=== PATIENT | female | born 1955 | race Hispanic/Latino ===

== ENCOUNTER 2018-12-13 16:19 | Emergency (ER) | payer OTHER ==
[~2018-12-13] VITALS: Ht 144.8 cm; Wt 67.6 kg
[2018-12-13] MEDS ORDERED: VENLAFAXINE HCL25 MG PO (17:09)
[2018-12-13] MEDS ORDERED: GABAPENTIN300 MG PO (17:09)
[2018-12-13] MEDS ORDERED: LANTUS100 UNITS/ SUB-Q (17:10)
[2018-12-13] MEDS ORDERED: PRAVASTATIN SOD20 MG PO (17:10)
[2018-12-13] MEDS ORDERED: HUMALOG100 UNITS/ IV (17:11)
[2018-12-13] MEDS ORDERED: NORCO 7.5-3251 EACH PO (17:11)
[2018-12-13] MEDS ORDERED: PRINIVIL5 MG PO (17:12)
[2018-12-13] MEDS ORDERED: ZOFRAN4 MG PO (19:54)
== END 2018-12-13 20:22 | disposition home or self-care (01) ==
LOC: ED 16:19
DX: E11.65 Type 2 diabetes mellitus with hyperglycemia (principal); K59.00 Constipation, unspecified; R11.2 Nausea with vomiting, unspecified; I10 Essential (primary) hypertension; E11.9 Type 2 diabetes mellitus without complications; Z87.891 Personal history of nicotine dependence; Z79.899 Other long term (current) drug therapy; Z79.4 Long term (current) use of insulin; Z88.8 Allergy status to other drugs, medicaments and biological substances
CPT/HCPCS: 74018; 80053; 81001; 83690; 85025; 96361; 96374; 96375; 99284-25; J1885; J2270; J2405; J2765; J7030

== ENCOUNTER 2019-06-25 10:21 | Emergency (ER) | payer MEDICARE, OTHER ==
[~2019-06-25] VITALS: Ht 144.8 cm; Wt 64.9 kg
[~2019-06-25 10:21] MED LIST: GABAPENTIN300 MG PO; HUMALOG100 UNITS/ IV; LANTUS100 UNITS/ SUB-Q; NORCO 7.5-3251 EACH PO; PRAVASTATIN SOD20 MG PO; PRINIVIL5 MG PO; VENLAFAXINE HCL25 MG PO; ZOFRAN4 MG PO
[2019-06-25] MEDS ORDERED: IMITREX50 MG PO (11:24)
== END 2019-06-25 15:30 | disposition home or self-care (01) ==
LOC: ED 10:21
DX: G43.909 Migraine, unspecified, not intractable, without status migrainosus (principal); E11.65 Type 2 diabetes mellitus with hyperglycemia; I10 Essential (primary) hypertension; Z91.048 Other nonmedicinal substance allergy status; Z79.4 Long term (current) use of insulin
CPT/HCPCS: 36415; 80048; 80053; 81001; 83690; 83735; 85025; 96361; 96374; 96375; 99284-25; J1200; J1815; J1885; J2765; J7030

== ENCOUNTER 2019-12-11 11:54 | Inpatient (IN) | payer MEDICARE, MEDICAID ==
[~2019-12-11] VITALS: Ht 144.8 cm; Wt 64.9 kg
[~2019-12-11 11:54] MED LIST changes: -HUMALOG100 UNITS/ IV; +HUMALOG100 UNITS/ SUB-Q; +IMITREX50 MG PO
[2019-12-11] MEDS ORDERED: HYDROCODON-ACE1 EAC8 PO (12:14)
--- NOTE | 2019-12-11 18:52 | NUR ---
PT ARRIVED VIA STRETCHER AT 1825. PT REPORTED THAT SHE HAS HYDROCODONE IN HER PURSE. SHE REMOVED IT FROM HER PURSE AND IT WAS PLACED IN THE KITS LIST. IV ANCEF STARTED. PT REPORTED PAIN AT IV SITE. RN ASSESSED AND THERE IS A LARGE, FIRM, LUMP SURROUNDING THE IV SITE. IV TURNED OFF. 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 PT IS HUNGRY, HOWEVER SHE IS NPO. NO OTHER ORDERS NOTED OF YET.
--- NOTE | 2019-12-11 20:39 | NUR ---
charge nurse rounding note:. pt c/o poor relief from pain med given a few minutes ago. Primary RN aware, IVF infusing, call light at bedside
--- NOTE | 2019-12-11 21:00 | NUR ---
PT ON PHONE WITH FAMILY - TEARFUL AND SAD, ABD PAIN IMPROVED WITH IV MEDS. RN VISITED AND DISCUSSED PLAN OF CARE - PT SEEMED IMPROVED - LESS TEARFUL WITH VISIT FROM RN.
--- NOTE | 2019-12-11 22:54 | NUR ---
ANSWERED CALL LIGHT. SBA PATIENT WENT TO THE BATHROOM. PATIENT IS BACK IN BED. CALL LIGHT IN REACH. NO OTHER NEEDS AT THIS TIME.
--- NOTE | 2019-12-12 01:31 | NUR ---
SBA TO THE BATHROOM AND BACK TO BED. PATIENT C/O PAIN. PATIENT ASKED FOR PAIN MEDS. PRIMARY RN NOTIFIED. NO OTHER NEEDS AT THIS TIME.
--- NOTE | 2019-12-12 05:36 | NUR ---
PT TOLL CL LIQ ADA DIET. BS ac & hs SEEMED TO HAVE A RESTFULL NIGHT. IV TORADOL FOR ABD. PAIN. BOWEL REST WITH POSSIBLE C-SCOPE IN NEXT FEW DAYS W/VINCE. IV FUSED WELL D5LR@85
--- NOTE | 2019-12-12 06:14 | NUR ---
pt sleeping, rrr, eyes closed - mumblinging (sleep talking). iv abx started.
--- NOTE | 2019-12-12 07:20 | NUR ---
RECIEVED BEDSIDE REPORT FROM LILLY Nathan RN. PT IS RESTING COMFORTABLY. TOLERATING CLEARS WELL. PAIN WELL CONTROLED WITH TORADOL.
--- NOTE | 2019-12-12 08:27 | NUR ---
PT IS IN TEARS COVERING HER EYES COMPLAINING OF A HEADACHE. SHE ONLY HAS MORPHINE OR DILAUDID FOR PAIN. TITRATED LOWER DOSE OF MORPHINE FOR HER HEADACHE. GAVE PT A COLD WASHCLOTH FOR HER HEAD AND TOLD HER TO REST.
--- NOTE | 2019-12-12 09:38 | NUR ---
AFTER A NAP AND 2MG MORPHINE, PT STATES HER HEADACHE IS MUCH BETTER. PT STATES SHE IS "A STARVING LAURA" AND READY TO EAT. ADVISED SHE IS STILL ON CLEARS, WILL GET HER JELLO. PT IS REQUESTING NASAL SPRAY, SHE DOES NOT HAVE ANY ORDERED. WILL ASK THE MD WHEN HE ROUNDS.
--- NOTE | 2019-12-12 10:19 | NUR ---
PT C/O HEADACHE. TORADOL GIVEN FOR PAIN CONTROL. ALSO C/O NAUSEA, ZOFRAN GIVEN FOR NAUSEA. PT IS ASKING FOR CLEAR LIQUID TRAY, BUT UNABLE TO TOLERATE AT THIS TIME. PT STATES SHE WOULD LIKE TO TRY TO EAT, TRAY WAS LEFT IN ROOM. PT STATES SHE IS "ALLERGIC TO ORANGE JELLO", BUT OTHER COLORS ARE OK.
--- NOTE | 2019-12-12 11:12 | NUR ---
Discussed pain control with Dr Edwards. He will change medications as needed.
--- NOTE | 2019-12-12 12:31 | HP ---
[facility] [address] [place], [place] [address] Signed ADMISSION DATE: 12/11/2019 REASON FOR ADMISSION: Left-sided colitis. 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 She and her live here locally. She has 4 girls of her own and 3 adopted daughters as well, all grown and out of the house. Yesterday, she began having vague abdominal pain, ultimately having some rectal bleeding and diarrhea. Left-sided pain was noted as well. She has not had symptoms like this in the past. She has no known family history of colon cancer or family history of colitis. She says she has undergone colonoscopy approximately 3 years ago in the [facility], which was said to be normal. The patient does not smoke, but does have diabetes. She has been evaluated for TIAs many years ago she says. A CT scan was performed under the direction of Dr. Lucero in the emergency room, which was remarkable for significant thickening, consistent with colitis extending from the splenic flexure to the rectosigmoid. There is a small amount of pelvic fluid. There are some diverticula also noted in the sigmoid area. Scattered diverticula of the transverse and ascending colon were also noted. The uterus and urinary bladder were normal. Ovaries were not identified. The patient has had no similar such episodes in the past. PAST MEDICAL HISTORY: Significant for diabetes mellitus, self described history of gastric ulcers, hypertension, and history of "blood clots." She has never smoked. Does not use alcohol or illicit drugs. PAST SURGICAL HISTORY: Includes . ALLERGIES: She has allergy to iodine, which caused blisters during the course of a CT scan. MEDICATIONS: At present include Imitrex for migraines, venlafaxine, gabapentin, pravastatin, Lantus Electronically Signed By: OLGA CLARKE MD 12/12/19 6683 PATIENT NAME: SAVANNA GONZALEZ HISTORY AND PHYSICAL DATE OF : 55 REPORT #: [id number] PHYSICIAN: OLGA CLARKE MD PCP: OTHER PCP REPORT IS CONFIDENTIAL AND NOT TO BE RELEASED WITHOUT AUTHORIZATION [facility] [address], [place] [address] Signed insulin 40 units daily subcutaneously, Humalog of an uncertain dose as needed, and lisinopril 5 mg daily. Additionally, she has taken [place], but no longer takes that. REVIEW OF SYSTEMS: She denies any chest pain or shortness of breath. She has no dysphagia or hematemesis. She has had loose stool and blood per rectum, consistent with her diagnosis recently of colitis. PHYSICAL EXAMINATION: GENERAL: This is a pleasant dark-skinned woman, who is alert and oriented, not systemically toxic. VITAL SIGNS: Temperature is 99, pulse is 85, respirations 16, blood pressure 137/68. NECK: Showed no thyromegaly or cervical adenopathy. She is wearing a mask, which is the fashion of the day with COVID epidemic currently. HEENT: Mucous membranes are examined showing very dry mucous membranes. CHEST: Shows normal respiratory excursion without tachypnea. ABDOMEN: Somewhat obese. She does have tenderness in the left abdomen including the left lower quadrant and the left mid and upper abdomen. Right side is normal. There is no ascites. EXTREMITIES: Show no clubbing, cyanosis, or edema. LABORATORY STUDIES: Show a white count of 21.6, hematocrit 42, platelets 267,000, neutrophils are 90%, bands 2%. Chem profile shows normal electrolytes. Creatinine is 0.74, glucose elevated at 316. Lactic acid 1.3. Liver enzymes normal. Lipase not performed. Urinalysis shows some 30 red cells per high-power field, squames are 1+, bacteria negative, white cells 0. I have reviewed the CT scan in detail as well as the imaging of it. ASSESSMENT: The patient has colitis of the left side of the colon including the rectosigmoid. There were scattered diverticula, but this appears more likely primary colitis problem rather than a diverticulitis problem. The colon wall is impressively thickened. In combination with her bleeding and her diarrhea, this may represent ischemic colitis. Her white count is impressively elevated, though not typical to give antibiotics for ischemic colitis in her situation we will do so. She will need to have colonoscopy in the next day or so to more fully characterize the type of colitis that is present, both from endoscopic appearance and by biopsies. We discussed that in detail. In the meantime, she will be admitted and observed. Liquids may be allowable, but no solid food. Bowel rest is paramount at this time. We will not initiate steroids until and unless an inflammatory bowel disease diagnosis emerges following colonoscopy. Electronically Signed By: OLGA CLARKE MD 12/12/19 1231 PATIENT NAME: SAVANNA GONZALEZ HISTORY AND PHYSICAL DATE OF : 55 REPORT #: [id number] PHYSICIAN: OLGA CLARKE MD PCP: OTHER PCP REPORT IS CONFIDENTIAL AND NOT TO BE RELEASED WITHOUT AUTHORIZATION [address] [address] Signed MD BRIAN Hanley/MODL /[id number] cc: MD Hany Charles MD Copies: HANY LUCERO MD ~ Electronically Signed By: OLGA CLARKE MD 12/12/19 1231 PATIENT NAME: SAVANNA GONZALEZ HISTORY AND PHYSICAL DATE OF : 55 REPORT #: [id number] PHYSICIAN: OLGA CLARKE MD PCP: OTHER PCP REPORT IS CONFIDENTIAL AND NOT TO BE RELEASED WITHOUT AUTHORIZATION
--- NOTE | 2019-12-12 13:07 | NUR ---
SPOKE WITH SUZIE HANDLEY DAYO. PT NEEDS TO BE NPO FOR 6-8 HOURS PRIOR TO SCAN. ENDER IS OFF CALL AT 1400. SOAP GRINDER AWARE TO CALL KELLY IN THIS AFTERNOON TO DO THE SCAN. PT AWARE OF NPO STATUS. PT HAS ONLY HAD SIPS OF WATER OVER COURSE OF DAY.
--- NOTE | 2019-12-12 14:41 | NUR ---
PATIENT IN BED RESTING. NEW HOT PACK PROVIDED. CALL LIGHT IN REACH. NO FURTHER NEEDS AT THIS TIME.
--- NOTE | 2019-12-12 15:45 | NUR ---
SPOKE WITH DR CLARKE RE: ULTRASOUND. PER THE US TECH, PT NEEDS TO BE STRICT NPO FOR 8 HRS PRIOR TO THE US FOR BEST RESULTS. PT HAS BEEN NPO FOR 2.5 HRS AT THIS TIME. PER DR CLARKE, MAKE HER NPO AT MIDNIGHT AND DO THE ULTRASOUND IN THE AM. PHILATELIC CONSULTANT AND ONCALL US TECH AWARE.
--- NOTE | 2019-12-12 17:30 | NUR ---
PT IS TEARFUL AND CRYING THAT HER STOMACH HURTS. SHE STATES SHE HAS NOT HAD PAIN THIS BAD IN 5 YEARS. SHE WANTS "WHAT I HAD LAST" WHICH WAS TORADOL, BUT IT IS NOT TIME FOR THAT. WHEN THIS RN EXPLAINED WHAT TORADOL WAS PT STATED "OH, I CAN'T TAKE THAT. IT DOESN'T WORK". PT GIVEN HOT PACK, HOT WATER PER HER REQUEST, ZOFRAN, MORPHINE.
--- NOTE | 2019-12-12 18:33 | NUR ---
PAIN IS BETTER CONTROLLED AFTER 2 DOSES OF DILAUDID. PT IS LAUGHING AND SMILING, NO LONGER CRYING. PT STATES HER "BELLY BUTTON HURTS AND I DON'T KNOW WHY!". PT IS BREATHING EVEN AND UNLABORED.
--- NOTE | 2019-12-12 18:35 | NUR ---
PT HAS HOT PACK IN PLACE.
--- NOTE | 2019-12-12 18:37 | NUR ---
PATIENT UP TO BATHROOM AND BACK TO BED, SBA. CALL LIGHT IN REACH. NO FURTHER NEEDS AT THIS TIME.
--- NOTE | 2019-12-12 21:27 | NUR ---
CALL LIGHT ANSWERED. SBA TO THE BATHROOM AND BACK TO BED. NO OTHER NEEDS AT THIS TIME.
--- NOTE | 2019-12-12 21:33 | NUR ---
PATIENT ASKED FOR PAIN MEDICATION. PRIMARY RN NOTIFIED.
--- NOTE | 2019-12-12 21:40 | NUR ---
c/o 9-10 abd pain and h/a, ice to back of head and cold towel to face, medicated with morphine 8mg iv. Coop with assessment. turns self in bed. calmer than yesterday still c/o L low and pain that is radiating to R upper area and back. no n/v. tolerating liquids and diet well, aware of npo after midnight.
--- NOTE | 2019-12-12 23:51 | NUR ---
Pt in bed, c/o l lower and r upper abd pain, 03/10, medicated with Toradol IV 30mg, repositions self in bed, no further c/o pain. IVf infusing, no emesis
--- NOTE | 2019-12-13 01:42 | NUR ---
awakes easily, c/o 7/10 back pain and mild h/a, turns self in bed, medicated with morphine 5mg iv. IVF infusing, tolerating fluids well
--- NOTE | 2019-12-13 05:28 | NUR ---
c/o abd pain and h/a, medicated with Dilaudid 0.5mg IV,
--- NOTE | 2019-12-13 05:31 | NUR ---
pt has been medicated with Dilaudid, Morphine and Toradol per c/o abd abd pain and h/a, effective. no n/v. Pt is NPO fort am abd US. IVF infusing w/o problems, no c/o adverse s/e to IV abx. On room air. voiding QS. no bm this shift.
--- NOTE | 2019-12-13 07:41 | NUR ---
RECIEVED BEDSIDE REPORT FROM SAAD CABRERA. ULTRASOUND IN TO DO ULTRASOUND OF GALLBLADDER. PT TOLERATED WELL. PT HAD QUESTIONS ABOUT MEDICATIONS, ANSWERED. PT STATED SHE HAD A BETTER NIGHT.
[2019-12-13] MEDS ORDERED: FLUTICASONE PRO16 GM NAS (10:39)
[2019-12-13] MEDS ORDERED: MOVANTIK25 MG PO (10:43)
[2019-12-13] MEDS ORDERED: GABAPENTIN600 MG PO (10:44)
[2019-12-13] MEDS ORDERED: VENLAFAXINE HC150 MG PO (10:44)
--- NOTE | 2019-12-13 10:50 | NUR ---
SPOKE WITH PATIENT IN ROOM. PATIENT STATES SHE WORKED AND LIVES IN [facility]. STATES SHE AND HER SIG OTHER HAVE BEEN STAYING WITH HER DAUGHTER HARI HERE SINCE THE COVID STAY AT HOME ORDER. SHE STATES SHE IS NOMALLY INDEPENDENT. DOES NOT USE DME, ALTHOUGH HAS A CPAP (NO OXYGEN) BUT HASN'T BEEN USING IT LATELY. SHE STATES SHE FELL A WEEK AGO AT HER DAUGHTERS ON SOME STEPS. SHE DENIES NEEDING A WALKER. SHE FEELS SAFE TO RETURN HOME WITH FAMILY. SHE STATES SHE HAS NO WORRY ABOUT AFFORDING MEDS, FOOD, UTILITIES. DR CLARKE CAME INTO THE ROOM. HE UPDATED HER DAUGHTER SHE REQUESTED. HE STATES MAYBE HOME IN A COUPLE DAYS. NO FURTHER QUESTIONS AT THIS TIME.
--- NOTE | 2019-12-13 12:22 | NUR ---
SPOKE WITH SOFIA RACHID, PT'S . AT THIS POINT, SHE THINKS THE BEST COURSE OF ACTION IS TO TAKE HER HOME AMA. SHE STATED THAT SHE IS WILLING TO DO WHATEVER IT TAKES TO TAKE CARE OF HER . WHILE IT IS NOT "WHAT THEY WOULD DO IN PHYSICAL THERAPY, THEY HAVE A SYSTEM THAT WORKS FOR THEM AT HOME" RN EXPLAINED THAT WITH HIS CURRENT INJURIES, THEIR AT HOME SYSTEM MAY NOT WORK. AT THIS TIME, WE DO NOT FEEL WE CAN SAFELY DISCHARGE. SOFIA STATED THAT SHE WILL GET A JOSH IF SHE NEEDS TO. SHE ASKED ABOUT HIS OXYGEN LEVELS, SHE WILL "GET ONE OF THOSE OXYGEN MAKER MACHINES IF I NEED TO" WHEN ASKED ABOUT PAIN CONTROL, SHE STATED SHE HAS ADVIL AT HOME FOR HIM. CARBIDE TOOL DIE MAKER, DR FLOYD, FEED MILL SUPERVISOR ALL AWARE OF POTENTIAL ISSUES. SOFIA WILL CALL HER DAUGHTER AND CONFIR WITH HER AND SEE WHAT THEY WANT TO DO. SHE WILL CALL BACK KEEGANTIN THE HOUR TO ADVISE.
--- NOTE | 2019-12-13 15:25 | NUR ---
PATIENT WAS ADMITTED AT HIGH RISK FOR MALNUTRITION DUE TO RECENT POOR APPETITE AND UNSURE OF WEIGHT LOSS. SHE IS BEING WORKED UP FOR COLITIS. HEIGHT: 4'9". WEIGHT: 143 LBS. BMI = 30.9. CURRENT DIET: CLEAR LIQ DIABETIC. BMI DOES NOT INDICATE UNDERWEIGHT. PATIENT TO HAVE COLONOSCOPY. ESTIMATED CALORIE NEEDS: [id number] (25-30 KCAL/KG CBW ESTIMATED PROTEIN NEEDS: 78-97 GRAMS (1.2-1.5 GM/KG CBW) WILL AWAIT TEST RESULTS TO SEE WHAT NEXT STEPS ARE. MAY NEED A LOW-FIBER, DIABETIC DIET. WILL CONTINUE TO MONITOR.
[2019-12-13] MEDS ORDERED: MIRALAX119 GM PO (15:51)
--- NOTE | 2019-12-13 15:52 | NUR ---
MED REC COMPLETE
--- NOTE | 2019-12-13 19:25 | NUR ---
BEDSIDE REPORT RECEIVED FROM OFFGOING RNJUSTIN. PT RESTING IN BED. CALL LIGHT IN REACH.
--- NOTE | 2019-12-13 21:15 | NUR ---
PT ASSESSMENT COMPLETE. PT REPORTS PAIN TO ABD AND HEADACHE, PRN MS ADMINISTERED. PT REPORTS SLIGHT NAUSEA, WOULD LIKE OT SEE IF TEA AND PAIN MEDICATION WILL ALLEVIATE NAUSEA. WILL CALL IF SHE WOULD LIKE NAUSEA MEDICATION. PT DENIES SOB. BT'S ACTIVE. ABD TENDER TO PALPATION. PT DENIES FURTHER NEEDS AT THIS TIME. CALL LIGHT IN REACH.
--- NOTE | 2019-12-13 22:15 | NUR ---
PT UTILIZES CALL LIGHT, REQUESTS PRN NAUSEA MEDCIATION. ADMINISTERED. PT DENIES FURTHER NEEDS. CALL LIGHT WITHIN REACH.
--- NOTE | 2019-12-14 01:30 | NUR ---
PT ASSESSMENT COMPLETE. PT RATES PAIN 9/10, REQUESTS WARM COMPRESS AND PRN PAIN MEDICATION. PROVIDED. PT STATES THAT NAUSEA IS WELL CONTROLLED. DENIES SOB. BT'S ACTIVE. ABD TENDER TO PALPATION. IV FLUSHED, PATENT. PT UP TO BSC AND BACK TO BED. TOLERATED WELL. PT DENIES FURTHER NEEDS AT THIS TIME. CALL LIGHT IN REACH.
--- NOTE | 2019-12-14 05:50 | NUR ---
PHYSICIAN PRACTICE MARKET MANAGER TO ROOM FOR SCHEDULED MED ADMINISTRATION, PT REPORTS 10/10 PAIN TO ABD AND HEADACHE. PRN ADMINISTERED SEE MAR. JEWELRY REMOVED, PREPROCEDURE CHECK LIST COMPLETED. PT PROVIDED WITH MOUTH SWABS, DENIES FURTHER NEEDS AT THSI TIME. CALL LIGHT IN REACH.
--- NOTE | 2019-12-14 07:15 | NUR ---
SURGERY HERE TO GET PT. REPORT RECIEVED.
--- NOTE | 2019-12-14 08:18 | NUR ---
12/14/19 0818 [facility] 08-PT ARRIVES TO PACU ON 3 L VIA NC. SATS>90%. PT RESPONSIVE TO VERBAL STIMULUS. PT FALLS ASLEEP EASILY AND IS ABLE TO PASS GAS. BEDISDE GLUCOSE READING 108. NO INSULIN INDICATED ON SLIDING SCALE. VSS.
--- NOTE | 2019-12-14 08:54 | NUR ---
PT RETURNS FROM PACU NO C/O PAIN OR NAUSEA. AWAKE AND REQUESTING JELLO, H20, AND A POPCYCLE.
--- NOTE | 2019-12-14 09:55 | NUR ---
PT RESTING EYES CLOSED AWAKENS TO VOICE VITALS TAKEN. NO C/O RETURNS TO RESTING EYES CLOSED
--- NOTE | 2019-12-14 10:02 | NUR ---
PATIENT RESTING IN BED. VITAL SIGNS DONE BY RN. I&O DONE. CALL LIGHT WITHIN REACH. NO OTHER NEEDS AT THIS TIME
--- NOTE | 2019-12-14 10:58 | NUR ---
PT RESTING EYES CLOSED SNORING SOFTLY RESPONDS TO VOICE. NO C/O OR REQUESTS. CALL LIGHT IN REACH FLUID ITEMS AT BEDSIDE
--- NOTE | 2019-12-14 11:15 | NUR ---
Spoke with Tova. She denies needs. States she is not feeling well today. Tired following colonoscopy. Wanting to sleep. Curtain closed to assist her to sleep.
--- NOTE | 2019-12-14 11:54 | NUR ---
PT COMPLAINING OF GENERALIZED PAIN BUT MOSTLY BAD HEADACHE. 10/10 PAIN. PRN MEDICATION GIVEN. WILL REASSESS.
--- NOTE | 2019-12-14 12:24 | NUR ---
PT HAD SCOPE THIS AM. CHECKED ON PT-SHE APPEARS TO BE ASLEEP, CLOTH OVER HER EYES AND RM DARKENED. WILL CHECK BACK
--- NOTE | 2019-12-14 12:40 | NUR ---
PT ASLEEP. NO APPARENT NEEDS AT THIS TIME. CALL LIGHT WITHIN REACH.
--- NOTE | 2019-12-14 13:37 | NUR ---
PATIENT RESTING IN BED. STUDENT RN IN ROOM. VITAL SIGNS AND I&O DONE. ICE WATER GIVEN. CALL LIGHT WITHIN REACH. NO OTHER NEEDS AT THIS TIME
--- NOTE | 2019-12-14 14:30 | NUR ---
Patient laying in bed watching tv. Reports pain of "20/10" in RLQ, prn pain medication given (see MAR). D5LR infusing at 85 mls/hr. Patient reports headache is relieved from earlier, states pain in head is now 7/10. Denies nausea, tolerating clear liquid diet. SCDs in place. Hot tea is provided per request. Denies further needs, call light within reach.
--- NOTE | 2019-12-14 15:06 | NUR ---
Patient reports nausea, prn antiemetic given. Denies further needs, call light within reach.
--- NOTE | 2019-12-14 16:10 | NUR ---
WENT TO REASSESS PTS PAIN. SHE IS ASLEEP AT THIS TIME. WILL LET HER REST UNTIL DINNER.
--- NOTE | 2019-12-14 17:47 | NUR ---
PATIENT RESTING IN BED. RN IN ROOM. VITAL SIGNS AND I&O DONE. CALL LIGHT WITHIN REACH. NO OTHER NEEDS AT THIS TIME
--- NOTE | 2019-12-14 17:56 | NUR ---
PT.WOKE UP. GOT UP TO USE THE RESTROOM WAS STEADY ON HER FEET. RN PROVIDED STAND BY ASSIST. DECLINED SITTING UP IN THE CHAIR FOR DINNER. GOT HER TUCKED BACK INTO BED. ASSESSED IV, IT LOOKS INFILTRATED, STOPPED FLUID AND PROVIDED HOT PACK. REPORTS PAIN AT 8/10 IN ABDOMEN. PROVIDED PRN PAIN MEDICATION WITH CL LIQUID DIET. EDUCATED ABOUT NOT HAVING AN EMPTY STOMACH FOR ANTIBIOTIC AND PAIN MEDICATION AND THE RISKS OF CONSTIPATION ASSOCIATED WITH TAKING PERCOCET.
--- NOTE | 2019-12-14 18:55 | NUR ---
PT. RESTING IN BED FINISHING CL LIQ TRAY. STATES PAIN IS GETTING BETTER. CALL LIGHT WITHIN REACH.
--- NOTE | 2019-12-14 19:45 | NUR ---
SHIFT REPORT RECEIVED FROM RNS BRUCE AND YAHIR. pt RESTING SAFELY IN BED WITH EYES CLOSED, RR EVEN AND CALL LIGHT IN REACH. NO NEEDS AT THIS TIME.
--- NOTE | 2019-12-14 22:00 | NUR ---
pt ASSESSMENT COMPLETED, VS AND I+O's COMPLETED, PM MEDS GIVEN PER ORDER, pt RATES PAIN 10/10 IN HEAD/ NECK/ BACK/ ABD. PRN PAIN MEDS GIVEN PER ORDER, ICE WATER REFILLED AND PUDDING CUP GIVEN, pt IS RESTING SAFELY WITH CALL LIGHT IN REACH, DENIES ANY OTHER NEEDS AT THIS TIME. EDUCATED pt ON REASONING OF DISCOMFORT OF HER ABD.
--- NOTE | 2019-12-14 23:55 | NUR ---
pt IS RESTING SAFELY IN BED WITH EYES CLOSED, RR EVEN AND UNLABORED. CALL LIGHT IN REACH
--- NOTE | 2019-12-15 01:46 | NUR ---
pt USED CALL LIGHT TO SAY SHE WAS HAVING ABD PAIN AND NAUSEA. PRN MEDS FOR BOTH GIVEN PER REQUEST/ORDER. pt RESTING IN BED SAFELY WITH CALL LIGHT IN REACH DENIES ANY OTHER NEEDS AT THIS TIME
--- NOTE | 2019-12-15 03:20 | NUR ---
pt RESTING SAFELY IN BED, RR EVEN AND UNLABORED, CALL LIGHT IN REACH
--- NOTE | 2019-12-15 05:24 | NUR ---
2ND pt ASSESSMENT COMPLETED, VS AND I+O's COMPLETED. pt C/O OF ABD PAIN, RATES PAIN 2/10, DENIES NEED FOR PRN PAIN MEDS. pt RESTING SAFELY WITH CALL LIGHT IN REACH, DENIES FURTHER NEEDS AT THIS TIME.
--- NOTE | 2019-12-15 05:42 | NUR ---
pt RESTED WELL THROUGHOUT THE NIGHT. IND IN ROOM, A+OX3, ROOM AIR, IV SL, SCD's IN USE. PRN MEDS GIVEN FOR PAIN AND NAUSEA PER REQUEST/ORDER, HOT PACK GIVEN PER REQUEST. pt PASSING GAS.
--- NOTE | 2019-12-15 08:15 | NUR ---
PATIENT RESTING IN BED. STUDENT RN IN ROOM. PATIENT TAKES A SHOWER. LINENS CHANGED. CALL LIGHT WITHIN REACH. NO OTHER NEEDS AT THIS TIME
--- NOTE | 2019-12-15 08:50 | NUR ---
flonase and Toradol 30mg IVP admin for reports of 7/10 abd pain and nasal congestion.
--- NOTE | 2019-12-15 09:04 | NUR ---
Pt sitting up in bed at this time. Pt awake, a&ox4. Pt recently showered and reports she is feeling very well today. Peronal supplies and call light within reach. Pt reports she would like to take a short nap this am as she did not sleep well. Discussed with pt that we will go for a walk after her short nap; pt agreed to this plan of care. Personal supplies and call light within reach.
--- NOTE | 2019-12-15 09:40 | NUR ---
Spoke with Tova. She plans on going home today. Denies needs for a safe discharge. Will go home with SO to her daughters house where they have been isolating together due to covid.
--- NOTE | 2019-12-15 09:50 | NUR ---
PATIENT SITTING UP IN CHAIR. VITAL SIGNS DONE BY RN. I&O DONE. CALL LIGHT WITHIN REACH. NO OTHER NEEDS AT THIS TIME
[2019-12-15] MEDS ORDERED: CIPROFLOXACIN500 MG PO (10:11)
[2019-12-15] MEDS ORDERED: METRONIDAZOLE250 MG PO (10:11)
--- NOTE | 2019-12-15 10:37 | OR ---
[facility] [address], [place] [address] Signed DATE OF OPERATION: 12/14/2019 SURGEON: Olga Clarke MD PREOPERATIVE DIAGNOSES: 1. Severe left-sided colitis suspicious for ischemic colitis. 2. Diverticulosis. POSTOPERATIVE DIAGNOSES: 1. Ischemic colitis, left colon. 2. Diverticular disease of sigmoid. 3. Polyps x2 (left transverse and right colon). DESCRIPTION OF PROCEDURE: Total colonoscopy to cecum with cold snare polypectomy x1, cold morcellation polypectomy x1, and biopsy of ischemic colitis and rectum. ANESTHESIA: Intravenous sedation fentanyl 150 mcg and Versed 6 mg. INDICATIONS: This 64-year-old woman, who is a patient of Dr. Gardiner in the [facility]. She presented to the emergency room, was evaluated by Dr. Gaviria with severe left-sided abdominal pain and elevated white count of 21.6. Complaints of diarrhea with some blood and a CT scan performed, which showed left-sided colitis, appearance of that was ischemic colitis. She has no family history of inflammatory bowel disease or cancer. She has been admitted, given intravenous fluid resuscitation, IV antibiotics and is improving with white count steadily decreasing. She is to now undergo colonoscopy to affirm the clinical diagnosis of ischemic colitis, and in particular to assess there is no evidence of ulcerative colitis or other colitis problems, for which steroids would be indicated. The risks of bleeding, infection, and perforation related to colonoscopy were reviewed with her. She understands and wished to proceed. Her bowel prep was a single bottle of Mag citrate without eating in the past two days. FINDINGS: The prep was quite good overall. Complete colonoscopy was undertaken to the cecum. The underlying diagnosis is left-sided ischemic colitis. Rather severe manifestations were noted. There were diverticula of the sigmoid. Two polyps were noted, one in the left transverse and one in the right colon, both were excised. The mucosa proximal to the splenic flexure and distal to the sigmoid were completely normal. Further affirming the Electronically Signed By: OLGA CLARKE MD 12/15/19 [facility] PATIENT NAME: SAVANNA GONZALEZ OPERATIVE REPORT DATE OF : 55 REPORT #: [id number] PHYSICIAN: OLGA CLARKE MD PCP: OTHER PCP REPORT IS CONFIDENTIAL AND NOT TO BE RELEASED WITHOUT AUTHORIZATION [facility] [address], [place] [address] Signed clinical impression of ischemic colitis. DESCRIPTION OF PROCEDURE: The patient was brought to the endoscopy suite and placed in lateral decubitus position, given intravenous sedation to point of slurred speech and nystagmus with full cardiopulmonary monitoring. Digital rectal examination was normal. An Olympus video colonoscope was passed into the rectum and manipulated throughout the colon. Careful internal passage of the scope with minimal insufflation of air was undertaken. There were few scattered diverticula of the distal sigmoid, but upon entering the left colon, quite obvious ischemic colitis was noted. The scope was passed beyond this ultimately to the left transverse colon, where a small sessile polyp was noted, this was excised with cold morcellation technique and passed for pathology. The scope was further advanced. Transverse colon appeared normal as did the right colon. The ileocecal valve and appendiceal orifice were identified. Scope was then withdrawn and in the mid right colon was a small sessile polyp, this was excised with multiple bites of morcellation device. The scope was further withdrawn and transverse colon affirmed as normal. The previous polypectomy site noted as nonbleeding. At about the splenic flexure, ischemic changes were noted, which included the fibrinopurulent exudate, purple and violaceous changes and so forth. Biopsies were obtained. The scope was withdrawn and the mid-distal colon appeared quite the same and biopsy was additionally taken and in the distal descending and proximal sigmoid, similar findings and biopsies obtained. Withdrawal to the rectosigmoid showed normal mucosa. Biopsies were taken of the rectum. Scope was removed. The patient was taken to the recovery room in good condition. CONCLUDING DIAGNOSIS: 1. Colitis related to ischemic colitis. No evidence of inflammatory bowel disease. 2. Diverticulosis. 3. Polyps x2. PLAN: Continued supportive care will be undertaken. She will be transitioned to oral antibiotic regimen and a liquid diet, ultimately to advance to a low-fiber diet. We were reminded that the prognosis likely is good with appropriate conservative management. Olga Clarke MD Electronically Signed By: OLGA CLARKE MD 12/15/19 [facility] PATIENT NAME: SAVANNA GONZALEZ OPERATIVE REPORT DATE OF : 55 REPORT #: [id number] PHYSICIAN: OLGA CLARKE MD PCP: OTHER PCP REPORT IS CONFIDENTIAL AND NOT TO BE RELEASED WITHOUT AUTHORIZATION [address] [address] Signed /MODL /[id number] cc: Austin Gardiner MD Copies: AUSTIN GARDINER MD ~ Electronically Signed By: OLGA CLARKE MD 12/15/19 1037 PATIENT NAME: SAVANNA GONZALEZ OPERATIVE REPORT DATE OF : 55 REPORT #: [id number] PHYSICIAN: OLGA CLARKE MD PCP: OTHER PCP REPORT IS CONFIDENTIAL AND NOT TO BE RELEASED WITHOUT AUTHORIZATION
--- NOTE | 2019-12-15 11:45 | NUR ---
PATIENT IS TO DISCHARGE AFTER LUNCH ON A LOW-FIBER DIET. SHE HAS NOT RECEIVED ANY INFO YET SO I BROUGHT HER A HANDOUT ON A LOW-FIBER DIET. SHE HAS NOT FOLLOWED A LOW-FIBER DIET BEFORE. SHE NEEDED THE EDUCATION. WENT OVER THE FOODS RECOMMENDED AND THE FOODS NOT RECOMMENDED. OFFERED SUBSTITUTIONS FOR HER OATMEAL PACKETS AND WHEAT BREAD SHE NORMALLY EATS. I SUGGESTED CREAM OF WHEAT AND WHITE BREAD INSTEAD. SHE LIKES SOUPS WITH VEGGIES. I REMINDED HER SHE CAN HAVE SOUPS WITH CARROTS AND GREEN BEANS, BUT THAT'S ABOUT IT FOR VEGGIES. SHE HAS GOOD UNDERSTANDING. ALSO REMINDED HER THAT THIS DIET WON'T BE FOREVER, IT'S JUST TO GIVE HER GUT SOME TIME TO HEAL. MY NAME AND OFFICE # PROVIDED ON THE HANDOUT.
--- NOTE | 2019-12-15 12:00 | NUR ---
Returned pt's bottle of hydro/acetam 10/325mg po tabs.
--- NOTE | 2019-12-15 12:13 | PATH ---
[facility] [address] [place], [place] [address] Signed SPECIMEN(S): A TRANSVERSE, DESCENDING POLYP SPECIMEN(S): B ASCENDING POLYP SPECIMEN(S): C SPLENIC FLEXURE SPECIMEN(S): D DESCENDING SPECIMEN(S): E SIGMOID SPECIMEN(S): F RECTUM SPECIMEN SOURCE: A. TRANSVERSE, DESCENDING POLYP B. ASCENDING POLYP C. SPLENIC FLEXURE D. DESCENDING E. SIGMOID F. RECTUM CLINICAL HISTORY: Probable ischemic colitis. Preop: Colitis. Postop: Diverticulosis, polyps x 2, ischemic colitis left colon. MICROSCOPIC DESCRIPTION: Histologic sections of all submitted blocks are examined by light microscopy. These findings, together with the gross examination, support the pathologic diagnosis. FINAL PATHOLOGIC DIAGNOSIS: A. Colon, transverse/descending, polypectomy: - Tubular adenoma. - There is no evidence of high-grade dysplasia or malignancy. B. Colon, ascending, polypectomy: - Multiple fragments of tubular adenoma. - There is no evidence of high-grade dysplasia or malignancy. C. Colon, splenic flexure, biopsy: - Necrotic tissue with marked acute and chronic inflammatory changes. - No viable colonic mucosa or muscular wall is identified. D. Colon, descending, biopsy: - Colonic tissue and adjacent fragments demonstrating ischemic and acute and chronic inflammatory changes. E. Colon, sigmoid, biopsy: - Colonic tissue and adjacent fragments demonstrating ischemic and acute and chronic inflammatory changes. F. Rectum, biopsy: - No significant histopathologic alterations. PATIENT NAME: SAVANNA GONZALEZ PATHOLOGY DATE OF : 55 REPORT #: [id number] PHYSICIAN: MINERVA LEONE PCP: OTHER PCP REPORT IS CONFIDENTIAL AND NOT TO BE RELEASED WITHOUT AUTHORIZATION [facility] [address], [place] [address] Signed COMMENT: Regarding specimen F, the sections from the specimen are architecturally normal without crypt distortion. There is no acute or chronic inflammation. There is no evidence of microscopic colitis. There are no abnormal organisms or infiltrates. There is no evidence of polyps or neoplasia. TWK:caw:C2NR GROSS DESCRIPTION: Six specimens are received in six containers, labeled "MV." A. The specimen, labeled "MV, 1," and designated on the requisition "transverse/descending colon," is received in formalin and consists of a single conner soft tissue polypoid fragment with vegetative matter that measures 0.5 cm in greatest dimension. The specimen is entirely submitted in cassette (A1). B. The specimen, labeled "MV, 2," and designated on the requisition "ascending colon," is received in formalin and consists of three conner soft tissue fragments that measure 0.3 cm in greatest dimension. The specimen is entirely submitted in cassette (B1). C. The specimen, labeled "MV, 3," and designated on the requisition "splenic flexure," is received in formalin and consists of a single conner soft tissue fragment that measures 0.4 cm in greatest dimension. The specimen is entirely submitted in cassette (C1). D. The specimen, labeled "MV, 4," and designated on the requisition "descending colon," is received in formalin and consists of a single conner-brown soft tissue fragment that measures 0.4 cm in greatest dimension. The specimen is entirely submitted in cassette (D1). E. The specimen, labeled "MV, 5," and designated on the requisition "sigmoid colon," is received in formalin and consists of two conner soft tissue fragments that measure 0.3 cm in greatest dimension. The specimen is entirely submitted in cassette (E1). F. The specimen, labeled "MV, 6," and designated on the requisition "rectum colon," is received in formalin and consists of a single conner soft tissue fragment that measures 0.2 cm in greatest dimension. The specimen is entirely submitted in cassette (F1). AT (under the direct supervision of a pathologist) The Gross Description was prepared using a voice recognition system. The report was reviewed for accuracy; however, sound-alike word errors, addition and/or deletions may occur. If there is any PATIENT NAME: SAVANNA GONZALEZ PATHOLOGY DATE OF : 55 REPORT #: [id number] PHYSICIAN: MINERVA LEONE PCP: OTHER PCP REPORT IS CONFIDENTIAL AND NOT TO BE RELEASED WITHOUT AUTHORIZATION [facility] [address], [place] [address] Signed question about this report, please contact Client Services. PERFORMING LABORATORY: The technical component was performed by [employer], [address] [place] [address] (Pencil Inspector: Jeimy Joyner MD; CLIA# [id number]). [facility], [address] [address] (CLIA# [id number]). Diagnostician: Bolivar Gaytan MD Pathologist Electronically Signed 12/15/2019 Copies: ~ PATIENT NAME: SAVANNA GONZALEZ PATHOLOGY DATE OF : 55 REPORT #: [id number] PHYSICIAN: MINERVA PATHOLOGY PCP: OTHER PCP REPORT IS CONFIDENTIAL AND NOT TO BE RELEASED WITHOUT AUTHORIZATION
--- NOTE | 2019-12-15 12:57 | NUR ---
PT SITTING IN CHAIR, ALERT AND SEEMS ORIENTED. PT SMILED AND WELCOMED ME IN HER RM. PT MENTIONED THAT SHE FEELS SO MUCH BETTER THAN YESTERDAY. SHE HOPES DC WILL HAPPEN TODAY. PT THANKED ME FOR COMING IN, I GAVE HER A G.POST AND A BLESSING
--- NOTE | 2019-12-21 13:18 | DS ---
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 She and her live locally and she has 4 girls of her own and 3 adopted daughters as well, all grown and out of the house. The day before admission, she began having vague abdominal pain, ultimately having rectal bleeding and diarrhea. Left-sided pain was noted as well. She has no prior history of symptoms like this in the past. She has no known family history of colon cancer or family history of colitis and had undergone colonoscopy 3 years ago in the [facility], which was said to be normal. The patient does not smoke, but does have diabetes. She has had evaluation for TIAs many years ago. No findings were noted. She presented to the emergency room, was evaluated by Dr. Wilson, where CT scans performed with left-sided tenderness noted. This showed significant thickening of the left colon extending from the splenic flexure to the rectosigmoid. A small amount of pelvic fluid was noted as well. Consultation was undertaken with me and a clinical diagnosis of ischemic colitis was made. She is admitted for further evaluation and care. PHYSICAL EXAMINATION: GENERAL: Showed a pleasant dark-skinned woman, alert, oriented, not systemically toxic. VITAL SIGNS: Temperature 99, pulse 85, respirations 16, blood pressure 137/68. HEENT: Notable for dry mucous membranes. ABDOMEN: Obese abdomen which had marked tenderness in the left abdomen including left lower quadrant and left mid and upper abdomen. The right side was normal. There was no sign of ascites. LABORATORY DATA: Her white count was elevated at 21.6, hematocrit 42, and platelets 267,000. Lactic acid was 1.3. Urinalysis showed 30 red cells per high-power field, squames are 1+, bacteria negative, white cells 0. HOSPITAL COURSE: She was admitted and given her elevated white count and tenderness, considered to have colitis of some type of most likely based on its distribution ischemic colitis. Nevertheless, an infectious colitis was a possibility as well. She was treated with cefoxitin antibiotic. Additional fluid was given intravenously and she was kept with minimal liquids primarily for comfort. She developed a migraine headache (a chronic Electronically Signed By: OLGA CLARKE MD 12/21/19 1318 PATIENT NAME: SAVANNA GONZALEZ DISCHARGE SUMMARY DATE OF : 55 REPORT #: [id number] PHYSICIAN: OLGA CLARKE MD PCP: OTHER PCP REPORT IS CONFIDENTIAL AND NOT TO BE RELEASED WITHOUT AUTHORIZATION [facility] [address] [place], [place] [address] Signed problem for her) and was maintained on usual medications including medications for diabetes, which included Lantus insulin and sliding scale insulin as well. The following day, she had improvement generally of her left-sided abdominal pain, but then developed significant pain in her right upper quadrant. Her white count decreased to 18.2, hematocrit at 37.5. She did not have further diarrhea or blood per rectum. Liver enzymes were noted to be normal. On the basis of these findings, consideration was made for possible concurrent cholecystitis. A gallbladder ultrasound was performed, which showed no sign of gallstones and no obvious gallbladder thickening. Notably, the patient has had a fall at her daughter's house in the past week or so, landing on her right side and she did have mild bruising on that side. The pain is attributed likely to her fall more than anything else. She was improved enough that an abbreviated bowel prep with magnesium citrate was given and on December 14, 2019, she underwent colonoscopy. This confirmed the clinical impression of ischemic colitis extending from the sigmoid to the splenic flexure. The remaining colon was normal except for diverticulosis and 2 small polyps, both of which were excised. She was transitioned to a low-fiber diet which she tolerated well in addition to Cipro and Flagyl orally administered. By time of discharge, she is ambulating well, has much improved left lower abdominal pain. No significant right upper quadrant pain. Tolerating oral analgesics, which are nonopioid and is afebrile with a normal white count of 8.4. A plan for discharge will include 7 days more of antibiotics, though this was not my normal routine given her elevated white count and the findings noted, it is unlikely to be harmful and may be beneficial. We will see her back in the office in 4 to 6 weeks. A followup colonoscopy to assure no development of stricture or ongoing ischemia will be undertaken as well. She will resume her usual medications otherwise. She will be recommended to maintain a low-fiber diet for at least the next 2 weeks. MEDICATIONS: Include: 1. Cipro 500 mg p.o. b.i.d., #14. 2. Flagyl 250 mg p.o. t.i.d., #21. Resume usual medication of: 1. Pravastatin 20 mg p.o. daily. 2. Lantus insulin 100 units/mL, 45 units subcu daily. 3. Insulin Humalog 100 units/mL subcutaneously three times daily with meals sliding scale, which is in patient's possession. 4. Lisinopril 5 mg p.o. daily. 5. Sumatriptan (Imitrex) 50 mg tablets as needed for migraine headache. Electronically Signed By: OLGA CLARKE MD 12/21/19 1318 PATIENT NAME: SAVANNA GONZALEZ DISCHARGE SUMMARY DATE OF : 55 REPORT #: [id number] PHYSICIAN: OLGA CLARKE MD PCP: OTHER PCP REPORT IS CONFIDENTIAL AND NOT TO BE RELEASED WITHOUT AUTHORIZATION [facility] [address] [place], [place] [address] Signed 6. [place] 10/325 one p.o. q.6 hours as needed for pain. 7. Fluticasone (Flonase spray) 16 g two sprays b.i.d. as needed for allergies and sinus congestion. 8. Movantik 25 mg tablet p.o. daily for constipation as needed. 9. Gabapentin 600 mg p.o. b.i.d. as needed. 10. Venlafaxine 150 mg b.i.d. She will hold for the time being MiraLAX, which she has been taking chronically. DISCHARGE DIAGNOSES: 1. Ischemic colitis, left colon, etiology uncertain. 2. Incidental findings of diverticular changes in sigmoid and polyps x2 (excised) on colonoscopy December 14, 2019. 3. Recent ground level fall with right abdominal wall soreness and low-grade bruising. 4. Obesity. 5. Insulin-dependent diabetes mellitus. 6. Dyslipidemia. 7. Hypertension. 8. Migraine headache syndrome. FOLLOWUP PLAN: She will return to see us in 4 to 6 weeks. At that point, plans will be made for surveillance colonoscopy. MD BRINA Hanley/SELENAL /[id number] cc: Debra Gardiner MD [facility] Dolores Floyd MD Copies: DOLORES FLOYD MD Electronically Signed By: OLGA CLARKE MD 12/21/19 1318 PATIENT NAME: GONZALEZSAVANNA Carpio DISCHARGE SUMMARY DATE OF : 55 REPORT #: [id number] PHYSICIAN: OLGA CLARKE MD PCP: OTHER PCP REPORT IS CONFIDENTIAL AND NOT TO BE RELEASED WITHOUT AUTHORIZATION [address] [address] Signed ~ Electronically Signed By: OLGA CLARKE MD 12/21/19 1318 PATIENT NAME: GONZALEZSAVANNA DISCHARGE SUMMARY DATE OF : 55 REPORT #: [id number] PHYSICIAN: OLGA CLARKE MD PCP: OTHER PCP REPORT IS CONFIDENTIAL AND NOT TO BE RELEASED WITHOUT AUTHORIZATION
== END 2019-12-15 12:32 | disposition home or self-care (01) | DRG 395 ==
LOC: ED 11:54 → MS 18:11
PROVIDERS: ADMIT Surgery
PROC: 0DBP8ZX Excision of Rectum, Via Natural or Artificial Opening Endoscopic, Diagnostic (ICD-10-PCS; 2019-12-14)
PROC: 0DBF8ZX Excision of Right Large Intestine, Via Natural or Artificial Opening Endoscopic, Diagnostic (ICD-10-PCS; 2019-12-14)
PROC: 0DBL8ZX Excision of Transverse Colon, Via Natural or Artificial Opening Endoscopic, Diagnostic (ICD-10-PCS; 2019-12-14)
PROC: 0DBG8ZX Excision of Left Large Intestine, Via Natural or Artificial Opening Endoscopic, Diagnostic (ICD-10-PCS; principal; 2019-12-14 07:30)
DX: K55.039 Acute (reversible) ischemia of large intestine, extent unspecified (principal); K57.30 Diverticulosis of large intestine without perforation or abscess without bleeding; K63.5 Polyp of colon; E11.42 Type 2 diabetes mellitus with diabetic polyneuropathy; G43.909 Migraine, unspecified, not intractable, without status migrainosus; F41.8 Other specified anxiety disorders; E78.5 Hyperlipidemia, unspecified; E66.9 Obesity, unspecified; J30.9 Allergic rhinitis, unspecified; Z88.8 Allergy status to other drugs, medicaments and biological substances; Z79.899 Other long term (current) drug therapy; Z79.4 Long term (current) use of insulin; Z79.891 Long term (current) use of opiate analgesic; Z79.51 Long term (current) use of inhaled steroids; Z68.30 Body mass index [BMI] 30.0-30.9, adult
CPT/HCPCS: 36415; 74176; 76705; 80048; 80053; 81001; 82247; 82465; 83605; 83615; 83735; 84100; 84478; 84550; 85025; 87045; 87046; 87205; 87493; 88305; 96361; 96374; 96375; 96376; 99153; 99285-25; G0500; J0694; J1170; J1815; J1885; J2250; J2270; J2405; J3010; J7030; J7121

== ENCOUNTER 2021-02-12 16:21 | Emergency (ER) | payer MEDICARE, OTHER ==
[~2021-02-12] VITALS: Ht 144.8 cm; Wt 60.8 kg
[~2021-02-12 16:21] MED LIST changes: +CIPROFLOXACIN500 MG PO; +FLUTICASONE PRO16 GM NAS; +GABAPENTIN600 MG PO; +HYDROCODON-ACE1 EAC8 PO; +METRONIDAZOLE250 MG PO; +MIRALAX119 GM PO; +MOVANTIK25 MG PO; +VENLAFAXINE HC150 MG PO
[2021-02-12] MEDS ORDERED: FLAGYL500 MG PO (20:27)
[2021-02-12] MEDS ORDERED: CIPRO500 MG PO (20:27)
== END 2021-02-12 20:45 | disposition home or self-care (01) ==
LOC: ED 16:21
DX: K57.32 Diverticulitis of large intestine without perforation or abscess without bleeding (principal); I10 Essential (primary) hypertension; E11.9 Type 2 diabetes mellitus without complications; Z87.891 Personal history of nicotine dependence; Z88.8 Allergy status to other drugs, medicaments and biological substances; Z79.899 Other long term (current) drug therapy; Z79.4 Long term (current) use of insulin
CPT/HCPCS: 74176; 80053; 81001; 83690; 85025; 96374; 96376; 99284-25; J1170; J7030

== ENCOUNTER 2022-01-28 16:30 | Emergency (ER) | payer MEDICARE ==
[~2022-01-28] VITALS: Ht 144.8 cm; Wt 61.1 kg
[~2022-01-28 16:30] MED LIST changes: +CIPRO500 MG PO; +FLAGYL500 MG PO
[2022-01-28] MEDS ORDERED: ONDANSETRON ODT4 MG PO (18:46)
[2022-01-28] MEDS ORDERED: HYDROCODON-ACE1 EA10 PO (18:46)
== END 2022-01-28 19:07 | disposition home or self-care (01) ==
LOC: ED 16:30
DX: K52.9 Noninfective gastroenteritis and colitis, unspecified (principal); I10 Essential (primary) hypertension; E11.9 Type 2 diabetes mellitus without complications; Z91.09 Other allergy status, other than to drugs and biological substances; Z79.4 Long term (current) use of insulin; Z79.899 Other long term (current) drug therapy; Z87.891 Personal history of nicotine dependence
CPT/HCPCS: 36415; 74176; 80053; 81001; 83690; 85025; J1170; J2405; J7030; U0003

== ENCOUNTER 2024-04-25 03:28 | Inpatient (IN) | payer MEDICARE ==
[~2024-04-25] VITALS: Ht 144.8 cm; Wt 54.0 kg
[2024-04-25] VITALS (16 sets, daily range): BP systolic 115–141; BP diastolic 61–81
[~2024-04-25 03:28] MED LIST changes: +HYDROCODON-ACE1 EA10 PO; +ONDANSETRON ODT4 MG PO; +ONDANSETRON ODT8 MG PO
--- OUTSIDE RECORDS SUMMARY | 2024-04-25 03:33 | XMS ---
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 E.DRolan VISIT COUNT (12 MO.) 2 [facility] TOTAL 2 NOTE: Visits indicate total known visits. ED/UCC VISIT TRACKING (12 MO.) 04/25/2024 03:29 [facility] TYPE: Emergency COMPLAINT: - ABD PAIN 04/24/2024 12:55 [facility] TYPE: Emergency COMPLAINT: - WEAKNESS INPATIENT VISIT TRACKING (12 MO.) No inpatient visits to display in this time frame [email or web address]
[2024-04-25] MEDS ORDERED: ondansetron HCL 4 MG/2 ML VIAL IV ONE ×2 (03:45→05:00)
[2024-04-25] MEDS ORDERED: SODIUM CHLORIDE 0.9% 1,000 ML IV SCH (03:45)
[2024-04-25 03:52] LABS: HEMATOCRIT 45.4 % (35.0-50.0); HEMOGLOBIN 13.9 g/dL (12.0-18.0); MCH 29.7 (27-36); MCHC 30.7 g/dl (30-36); MCV 96.8 fl (81-99); PLATELET COUNT 310 K/uL (140-440); RBC 4.69 M/ul (4.3-5.7); RDW 15.5 (10.5-15.0)
[2024-04-25] MEDS ORDERED: CEFTRIAXONE/SODIUM CHLORIDE 2 GM/100 ML PIGGYBACK IV ONE (04:00)
[2024-04-25] MEDS ORDERED: INSULIN REGULAR IN 0.9 % NACL 100 ML IV SCH (04:00)
[2024-04-25 04:07] LABS: ALBUMIN 3.6 g/dL (3.4-5.0); ALBUMIN/GLOBULIN RATIO 0.82 (1.1-2.4); BILIRUBIN, TOTAL 0.5 ng/dL (0.2-1.0); BUN/CREATININE RATIO 16.93 (6.0-28.6); CALCIUM 9.9 mg/dL (8.5-10.1); CREATININE, SERUM 1.83 mg/dL (0.55-1.02); POTASSIUM 5.1 mmol/L (3.5-5.1)
[2024-04-25 04:09] LABS: LYMPHOCYTES, MANUAL DIFF 6; MONOCYTES, MANUAL DIFF 5; NEUTROPHILS, MANUAL DIFF 87
[2024-04-25 04:11] LABS: PARTIAL THROMBOPLASTIN TIME 21.1 Sec (22.9-41.3)
[2024-04-25 04:12] LABS: ANION GAP 40.1 (7-21); INR 1.22 (0.80-1.30); PROTIME 14.7 Sec (11.2-14.2)
[2024-04-25] MEDS ORDERED: NS + 20 mEq KCl 1,000 ML IV SCH (04:30)
[2024-04-25] MEDS ORDERED: LIDOCAINE 2% VISCOUS 6 ML SYR TOP ONE (04:30)
[2024-04-25 04:40] LABS: LACTIC ACID, BLOOD 4.4 mmol/L (0.4-2.0)
[2024-04-25 05:18] LABS: BILIRUBIN, URINE POSITIVE (negative); BLOOD/HGB, URINE SMALL (Negative); KETONE, URINE >=80 (Negative); LEUK ESTERASE, URINE NEGATIVE (negative); NITRITE, URINE NEGATIVE (negative); PH, URINE 5.5 (5-7)
[2024-04-25 05:24] LABS: ANION GAP 36.3 (7-21); BUN/CREATININE RATIO 19.46 (6.0-28.6); CALCIUM 8.4 mg/dL (8.5-10.1); CREATININE, SERUM 1.49 mg/dL (0.55-1.02); POTASSIUM 4.3 mmol/L (3.5-5.1)
[2024-04-25 05:37] LABS: BACTERIA, URINE RARE /hpf (negative); CASTS, URINE HYALINE 1+ \\lpf; COLLECTION TYPE, URINE CLEAN CATCH; CRYSTALS, URINE NONE SEEN (0-1+); EPITHELIAL CELLS, URINE NONE SEEN /lpf (0-1+); REFLEX CULTURE, URINE No (No)
[2024-04-25] MEDS ORDERED: IBLOOD GLUCOSE TEST STRIP 1 EA TEST XX PRN (06:00)
[2024-04-25] MEDS ORDERED: GLUCAGON,HUMAN RECOMBINANT 1 MG/ML VIAL SUB-Q PRN (06:00)
[2024-04-25] MEDS ORDERED: IBLOOD GLUCOSE TEST STRIP 1 EA TEST VI SCH (06:00)
[2024-04-25] MEDS ORDERED: DEXTROSE 5% 1,000 ML IV PRN (06:00)
[2024-04-25] MEDS ORDERED: ondansetron HCL 4 MG/2 ML VIAL IV PRN (06:00)
[2024-04-25] MEDS ORDERED: DEXTROSE 5% - NACL 0.45% 1,000 ML IV SCH (06:00)
[2024-04-25] MEDS ORDERED: DEXTROSE 50% 50 ML SYR IV PRN ×2 (06:00)
[2024-04-25] MEDS ORDERED: MAGNESIUM SULFATE 2 GM/50 ML BAG IV ONE (06:45)
[2024-04-25] MEDS ORDERED: MORPHINE SULFATE 4 MG/ML VIAL IV PRN (06:45)
[2024-04-25 08:39] LABS: ANION GAP 35.9 (7-21); BUN/CREATININE RATIO 19.23 (6.0-28.6); CALCIUM 9.2 mg/dL (8.5-10.1); CREATININE, SERUM 1.3 mg/dL (0.55-1.02); POTASSIUM 3.9 mmol/L (3.5-5.1)
[2024-04-25] MEDS ORDERED: ENOXAPARIN SODIUM 30 MG/0.3 ML SYR SUB-Q SCH (09:00)
[2024-04-25] MEDS ORDERED: DEXTROSE 10% 1,000 ML IV SCH (09:30)
[2024-04-25] MEDS ORDERED: POTASSIUM CHLORIDE 10 MEQ TABCR PO STA (11:22)
[2024-04-25 11:54] LABS: ANION GAP 22.5 (7-21); BUN/CREATININE RATIO 17.21 (6.0-28.6); CALCIUM 8.6 mg/dL (8.5-10.1); CREATININE, SERUM 1.22 mg/dL (0.55-1.02); POTASSIUM 3.5 mmol/L (3.5-5.1)
[2024-04-25] MEDS ORDERED: PHARMACY RENAL DOSE ADJUSTMENT 1 DOSE MISC PO SCH (12:00)
[2024-04-25] MEDS ORDERED: ACETAMINOPHEN 325 MG TAB PO PRN (12:15)
[2024-04-25] MEDS ORDERED: POTASSIUM CHLORIDE 20 MEQ in LACTATED RINGER'S 1,000 ML IV SCH (12:15)
[2024-04-25] MEDS ORDERED: OXYCODONE HCL 5 MG TAB PO PRN (12:15)
--- NOTE | 2024-04-25 12:42 | EKG ---
[facility] [address] [facility] [place] [address] Signed Sinus tachycardia Marked ST abnormality, possible anterior subendocardial injury Abnormal ECG No previous ECGs available Confirmed by José Miguel Foy MD ([id number]) on 04/25/2024 12:41:53 PM Electronically Signed By: JOSÉ MIGUEL FOY MD 04/25/24 1242 PATIENT NAME: SAVANNA GONZALEZ Electrocardiogram DATE OF : 55 PHYSICIAN: JOSÉ MIGUEL FOY MD REPORT #: [id number] REPORT IS CONFIDENTIAL AND NOT TO BE RELEASED WITHOUT AUTHORIZATION
[2024-04-25 14:43] LABS: ANION GAP 20.7 (7-21); BUN/CREATININE RATIO 16.96 (6.0-28.6); CREATININE, SERUM 1.12 mg/dL (0.55-1.02); POTASSIUM 4.7 mmol/L (3.5-5.1)
[2024-04-25] MEDS ORDERED: LACTATED RINGER'S 1,000 ML IV SCH (15:30)
[2024-04-25 17:29] LABS: PH, VENOUS 7.386 (7.31-7.41)
[2024-04-25 17:42] LABS: ANION GAP 19.6 (7-21); BUN/CREATININE RATIO 18.18 (6.0-28.6); CALCIUM 9.5 mg/dL (8.5-10.1); CREATININE, SERUM 0.99 mg/dL (0.55-1.02); POTASSIUM 4.6 mmol/L (3.5-5.1)
[2024-04-25 20:47] LABS: BUN/CREATININE RATIO 16.66 (6.0-28.6); CALCIUM 9.2 mg/dL (8.5-10.1); CREATININE, SERUM 1.02 mg/dL (0.55-1.02)
[2024-04-25] MEDS ORDERED: MELATONIN 3 MG TAB PO PRN (21:00)
[2024-04-25 23:36] LABS: ANION GAP 18.8 (7-21); BUN/CREATININE RATIO 16.48 (6.0-28.6); CALCIUM 9.1 mg/dL (8.5-10.1); CREATININE, SERUM 0.91 mg/dL (0.55-1.02); POTASSIUM 3.8 mmol/L (3.5-5.1)
[2024-04-26] VITALS (17 sets, daily range): BP systolic 126–154; BP diastolic 67–90
[2024-04-26 05:42] LABS: BASOPHILS 0.8 % (0-2); EOSINOPHILS 0.1 % (0-6); HEMATOCRIT 36.8 % (35.0-50.0); HEMOGLOBIN 12.2 g/dL (12.0-18.0); LYMPHOCYTES 7.9 % (24-44); MCH 29.2 (27-36); MCV 88.3 fl (81-99); MONOCYTES 6.6 % (0-12); NEUTROPHILS 84.6 % (39-80); PLATELET COUNT 225 K/uL (140-440); RBC 4.17 M/ul (4.3-5.7); RDW 14.2 (10.5-15.0)
[2024-04-26 05:44] LABS: ANION GAP 20.5 (7-21); BUN/CREATININE RATIO 15.21 (6.0-28.6); CALCIUM 9.4 mg/dL (8.5-10.1); CREATININE, SERUM 0.92 mg/dL (0.55-1.02); POTASSIUM 3.5 mmol/L (3.5-5.1)
[2024-04-26] MEDS ORDERED: MAGNESIUM SULFATE 2 GM/50 ML BAG IV ONE (08:00)
[2024-04-26] MEDS ORDERED: INSULIN REGULAR IN 0.9 % NACL 100 ML IV SCH (08:45)
[2024-04-26 10:35] LABS: BUN/CREATININE RATIO 14.28 (6.0-28.6); CALCIUM 9.1 mg/dL (8.5-10.1); CREATININE, SERUM 0.77 mg/dL (0.55-1.02)
[2024-04-26] MEDS ORDERED: POTASSIUM CHLORIDE 40 MEQ,LIDOCAINE HCL 1% 40 MG in DEXTROSE 5% 250 ML IV ONE (11:00)
[2024-04-26] MEDS ORDERED: MAGNESIUM HYDROXIDE/AL HYDROX 30 ML CUP PO PRN (12:15)
[2024-04-26 14:31] LABS: ANION GAP 17.5 (7-21); BUN/CREATININE RATIO 11.26 (6.0-28.6); CALCIUM 8.6 mg/dL (8.5-10.1); CREATININE, SERUM 0.71 mg/dL (0.55-1.02); POTASSIUM 3.5 mmol/L (3.5-5.1)
[2024-04-26] MEDS ORDERED: INSULIN GLARGINE-YFGN 100 UNIT/ML ML SUB-Q ONE (15:00)
[2024-04-26] MEDS ORDERED: IBLOOD GLUCOSE TEST STRIP 1 EA TEST VI SCH (17:00)
[2024-04-26] MEDS ORDERED: INSULIN LISPRO 100 UNIT/ML ML SUB-Q SCH (17:00)
[2024-04-26] MEDS ORDERED: INSULIN GLARGINE-YFGN 100 UNIT/ML ML SUB-Q SCH (21:00)
[2024-04-27] VITALS (10 sets, daily range): BP systolic 134–162; BP diastolic 68–92
[2024-04-27 05:30] LABS: BASOPHILS 0.6 % (0-2); HEMATOCRIT 40.2 % (35.0-50.0); HEMOGLOBIN 13.5 g/dL (12.0-18.0); LYMPHOCYTES 14.5 % (24-44); MCH 29.2 (27-36); MCHC 33.5 g/dl (30-36); MCV 87.2 fl (81-99); MONOCYTES 6.3 % (0-12); NEUTROPHILS 78.6 % (39-80); PLATELET COUNT 222 K/uL (140-440); RBC 4.62 M/ul (4.3-5.7); RDW 14.2 (10.5-15.0)
[2024-04-27 05:49] LABS: ALBUMIN 2.8 g/dL (3.4-5.0); ALBUMIN/GLOBULIN RATIO 0.76 (1.1-2.4); ANION GAP 16.9 (7-21); BILIRUBIN, TOTAL 0.5 ng/dL (0.2-1.0); BUN/CREATININE RATIO 11.66 (6.0-28.6); CALCIUM 8.9 mg/dL (8.5-10.1); CREATININE, SERUM 0.6 mg/dL (0.55-1.02); MAGNESIUM 1.4 mg/dL (1.8-2.4); POTASSIUM 2.9 mmol/L (3.5-5.1); PROTEIN, TOTAL 6.5 g/dL (6.4-8.2)
[2024-04-27] MEDS ORDERED: MAGNESIUM SULFATE 2 GM/50 ML BAG IV SCH (08:15)
[2024-04-27] MEDS ORDERED: POTASSIUM CHLORIDE 40 MEQ in DEXTROSE 5% 250 ML IV ONE (08:15)
[2024-04-27] MEDS ORDERED: POTASSIUM CHLORIDE 40 MEQ,LIDOCAINE HCL 1% 40 MG in DEXTROSE 5% 250 ML IV ONE (08:30)
[2024-04-27] MEDS ORDERED: ENOXAPARIN SODIUM 40 MG/0.4 ML SYR SUB-Q SCH (09:00)
[2024-04-27 13:24] LABS: ANION GAP 17.7 (7-21); BUN/CREATININE RATIO 13.63 (6.0-28.6); CALCIUM 8.6 mg/dL (8.5-10.1); CREATININE, SERUM 0.66 mg/dL (0.55-1.02); MAGNESIUM 2.8 mg/dL (1.8-2.4); POTASSIUM 3.7 mmol/L (3.5-5.1)
[2024-04-28] VITALS (7 sets, daily range): BP systolic 130–142; BP diastolic 65–76
[2024-04-28 06:02] LABS: HEMOGLOBIN 13.6 g/dL (12.0-18.0); MONOCYTES 6.9 % (0-12)
[2024-04-28 06:05] LABS: BASOPHILS 0.5 % (0-2); EOSINOPHILS 0.2 % (0-6); HEMATOCRIT 39.3 % (35.0-50.0); LYMPHOCYTES 27.5 % (24-44); MCH 30.2 (27-36); MCHC 34.6 g/dl (30-36); MCV 87.4 fl (81-99); NEUTROPHILS 64.9 % (39-80); PLATELET COUNT 195 K/uL (140-440); RDW 13.7 (10.5-15.0)
[2024-04-28 06:15] LABS: ALBUMIN 2.5 g/dL (3.4-5.0); ALBUMIN/GLOBULIN RATIO 0.76 (1.1-2.4); ANION GAP 9.9 (7-21); BILIRUBIN, TOTAL 0.4 ng/dL (0.2-1.0); BUN/CREATININE RATIO 18.18 (6.0-28.6); CALCIUM 8.6 mg/dL (8.5-10.1); CREATININE, SERUM 0.55 mg/dL (0.55-1.02); MAGNESIUM 1.8 mg/dL (1.8-2.4); POTASSIUM 2.9 mmol/L (3.5-5.1); PROTEIN, TOTAL 5.8 g/dL (6.4-8.2)
[2024-04-28] MEDS ORDERED: POTASSIUM CHLORIDE 40 MEQ,LIDOCAINE HCL 1% 40 MG in DEXTROSE 5% 250 ML IV ONE (08:30)
[2024-04-28] MEDS ORDERED: MAGNESIUM CHLORIDE 64 MG TABCR PO ONE (08:30)
[2024-04-29 05:29] VITALS: BP 169/90
[2024-04-29 05:43] LABS: BASOPHILS 0.3 % (0-2); EOSINOPHILS 0.8 % (0-6); HEMATOCRIT 42.6 % (35.0-50.0); HEMOGLOBIN 14.6 g/dL (12.0-18.0); LYMPHOCYTES 37.9 % (24-44); MCH 29.7 (27-36); MCHC 34.4 g/dl (30-36); MCV 86.5 fl (81-99); MONOCYTES 8.7 % (0-12); NEUTROPHILS 52.3 % (39-80); PLATELET COUNT 227 K/uL (140-440); RBC 4.93 M/ul (4.3-5.7); RDW 13.7 (10.5-15.0)
[2024-04-29 05:57] LABS: ALBUMIN 2.9 g/dL (3.4-5.0); ALBUMIN/GLOBULIN RATIO 0.81 (1.1-2.4); ANION GAP 9.1 (7-21); BILIRUBIN, TOTAL 0.5 ng/dL (0.2-1.0); BUN/CREATININE RATIO 15.25 (6.0-28.6); CALCIUM 9.3 mg/dL (8.5-10.1); CREATININE, SERUM 0.59 mg/dL (0.55-1.02); MAGNESIUM 1.7 mg/dL (1.8-2.4); POTASSIUM 3.1 mmol/L (3.5-5.1); PROTEIN, TOTAL 6.5 g/dL (6.4-8.2)
[2024-04-29] MEDS ORDERED: POTASSIUM CHLORIDE 40 MEQ,LIDOCAINE HCL 1% 40 MG in DEXTROSE 5% 250 ML IV ONE (07:45)
[2024-04-29] MEDS ORDERED: MAGNESIUM SULFATE 2 GM/50 ML BAG IV ONE (07:45)
[2024-04-29 09:25] VITALS: BP 141/75
[2024-04-29 11:34] VITALS: BP 141/75
[2024-04-29] MEDS ORDERED: ADMELOG100 UNIT/1 SUB-Q (12:29)
[2024-04-29] MEDS ORDERED: INSULIN GL100 UNIT/1 SUB-Q (12:29)
[2024-04-29] MEDS ORDERED: POTASSIUM CHLO20 ME1 PO (12:30)
[2024-04-29] MEDS ORDERED: MAG-TAB SR84 MG PO (12:30)
[2024-04-29 13:20] VITALS: BP 146/84
== END 2024-04-29 13:52 | disposition home or self-care (01) | DRG 637 ==
LOC: ED 03:28 → CCU 05:36 → MS 05:36
PROVIDERS: Emergency Medicine; Family Medicine; ADMIT Student in an Organized Health Care Education/Training Program; ATTEND Student in an Organized Health Care Education/Training Program
DX: E11.10 Type 2 diabetes mellitus with ketoacidosis without coma (principal); K85.90 Acute pancreatitis without necrosis or infection, unspecified; R65.10 Systemic inflammatory response syndrome (SIRS) of non-infectious origin without acute organ dysfunction; N17.9 Acute kidney failure, unspecified; Z66 Do not resuscitate; E87.6 Hypokalemia; I10 Essential (primary) hypertension; E83.42 Hypomagnesemia; Z87.19 Personal history of other diseases of the digestive system; Z87.891 Personal history of nicotine dependence; Z91.041 Radiographic dye allergy status; Z79.899 Other long term (current) drug therapy
CPT/HCPCS: 36415; 36592; 71045; 80048; 80053; 81001; 82010; 82800; 82803; 83036; 83605; 83690; 83735; 84484; 85025; 85610; 85730; 87040; 93005; 93010; A9270; G0480; J0696; J1650; J1815; J2405; J3475; J3480; J3490; J7030; J7060; J7121